=== PATIENT | female | born 1970 | race Caucasian/White ===

== ENCOUNTER 2016-04-16 10:55 | Emergency (ER) | payer MEDICARE, MEDICAID ==
[~2016-04-16 10:55] MED LIST: ASPIRIN E.C. 8181 MG PO; CITALOPRAM40 MG PO; DULOXETINE HCL40 MG PO; KLONOPIN 1MG1 MG PO; PHENERGAN25 M4 RC
== END 2016-04-16 12:08 | disposition home or self-care (01) ==
LOC: ED 10:55
DX: J06.9 Acute upper respiratory infection, unspecified (principal)

== ENCOUNTER 2016-09-02 11:18 | Emergency (ER) | payer MEDICARE, MEDICAID ==
[~2016-09-02] VITALS: Ht 162.6 cm; Wt 89.9 kg
[2016-09-02] MEDS ORDERED: AMBIEN10 MG PO (11:26)
[2016-09-02] MEDS ORDERED: PREDNISONE20 M1 PO (13:00)
[2016-09-02 14:01] VITALS: BP 125/70
== END 2016-09-02 14:28 | disposition home or self-care (01) ==
LOC: ED 11:18
DX: L30.9 Dermatitis, unspecified (principal); F41.9 Anxiety disorder, unspecified; R06.4 Hyperventilation; F43.10 Post-traumatic stress disorder, unspecified
CPT/HCPCS: J2060; J2920